=== PATIENT | male | born 1950 | race Hispanic/Latino ===

== ENCOUNTER 2016-05-23 14:53 | Observation (INO) | payer MEDICARE, OTHER ==
--- NOTE | 2016-05-23 15:29 | C.PDOC ---
History Of Present Illness Patient is a 65 year old male who presents to the ER with a complaint of bilateral leg swelling for an unspecified amount of time that is worsening. Patient states he lives in a [facility] and sleeps sitting up. Denies any chest pain, shortness of breath, fever, or chills. pt also c/o itchy rash to both arms, Time Seen by Provider: 05/23/16 15:26 Chief Complaint (Nursing): Lower Extremity Problem/Injury History Per: Patient History/Exam Limitations: no limitations Onset/Duration Of Symptoms: Days (Unknown) Current Symptoms Are (Timing): Still Present Past Medical History Reviewed: Historical Data, Nursing Documentation, Vital Signs Vital Signs: Last Vital Signs Temp 97.5 F L 05/23/16 14:58 Pulse 70 05/23/16 17:50 Resp 18 05/23/16 17:50 BP 165/82 H 05/23/16 17:50 Pulse Ox 98 05/23/16 18:53 - [facility] Procedures ALCOHOL DETOXIFICATION (01/26/14) Family History: States: Unknown Family Hx - Social History Hx Tobacco Use: Yes Hx Alcohol Use: Yes Hx Substance Use: No - Immunization History Hx Tetanus Toxoid Vaccination: No Hx Influenza Vaccination: No Hx Pneumococcal Vaccination: No Review Of Systems Constitutional: Negative for: Fever, Chills Cardiovascular: Negative for: Chest Pain, Palpitations Respiratory: Negative for: Shortness of Breath Gastrointestinal: Negative for: Nausea, Vomiting Musculoskeletal: Positive for: Other (Bilateral leg swelling) Physical Exam - Physical Exam Appears: Well, Non-toxic, No Acute Distress Skin: Normal Color, Warm, Dry Head: Atraumatic, Normacephalic Oral Mucosa: Moist Cardiovascular: Rhythm Regular Respiratory: Normal Breath Sounds, No Rales, No Rhonchi, No Wheezing Gastrointestinal/Abdominal: Soft, No Tenderness Extremity: Swelling (bilateral ), Other (Right leg pitting edema, poor toenails w/ fungal appearance.) Pulses: Left Dorsalis Pedis: Normal (+2), Right Dorsalis Pedis: Normal (+2) Neurological/Psych: Oriented x3, Normal Speech, Normal Cognition Additional Physical Exam Comments: Left leg proximally misshapen from mid knee to distal lower leg due to swelling , with less swelling to ankle. Right lower leg swollen from foot to knee with erythema, warmth and pitting edema. ED Course And Treatment - Laboratory Results Result Diagrams: 05/23/16 16:37 05/23/16 16:37 O2 Sat by Pulse Oximetry: 98 Pulse Ox Interpretation: Normal Progress Note: Blood work, urinalysis, and venous duplex scan low ext bi ordered. Reevaluation Time: 15:29 Reassessment Condition: Improved Medical Decision Making Medical Decision Making: message left for Dr Howell. Disposition Discussed With .: Marcos Howell Doctor Will See Patient In The: Hospital - Disposition Disposition Time: 18:52 Condition: STABLE - Clinical Impression Clinical Impression: Cellulitis of leg without foot, right, Rash, Hyponatremia - Scribe Statement The provider has reviewed the documentation as recorded by the Scribe Jessee Moore All medical record entries made by the Scribe were at my direction and personally dictated by me. I have reviewed the chart and agree that the record accurately reflects my personal performance of the history, physical exam, medical decision making, and the department course for this patient. I have also personally directed, reviewed, and agree with the discharge instructions and disposition. Decision To Admit - Pt Status Changed To: Hospital Disposition Of: Observation - . Bed Request Type: Regular Patient Diagnosis: Cellulitis of leg without foot, right, Rash, Hyponatremia
[2016-05-23 16:41] LABS: BASO # 0.1 K/uL (0.0-0.2); EOS # 0.9 K/uL (0.0-0.7); EOS % 10.8 % (0.0-4.0); HEMATOCRIT 34.6 % (35.0-51.0); LYMPH # 1.9 K/uL (1.0-4.3); MEAN CELL VOLUME 92.9 fL (80.0-94.0); MEAN CORPUSCULAR HEMOGLOBIN 32.2 pg (27.0-31.0); MEAN CORPUSCULAR HGB CONC 34.6 g/dL (33.0-37.0); MEAN PLATELET VOLUME 6.9 fL (7.2-11.7); MONO % 11.7 % (0.0-10.0); RED CELL DISTRIBUTION WIDTH 12.1 % (11.5-14.5); WHITE BLOOD COUNT 8.4 K/uL (4.8-10.8)
[2016-05-23 16:49] LABS: CHLORIDE 88 mmol/L (98-107)
[2016-05-23 16:50] LABS: POTASSIUM 3.5 mmol/L (3.6-5.2); SODIUM 129 mmol/L (132-148)
[2016-05-23 16:52] LABS: ALB/GLOB RATIO 1.1 (1.0-2.1); AST/SGOT 20 U/L (17-59); BILIRUBIN,TOTAL 0.6 mg/dL (0.2-1.3); BLOOD UREA NITROGEN 12 mg/dL (9-20); CARBON DIOXIDE 31 mmol/L (22-30); GFR AFRICAN-AMERICAN > 60; TOTAL PROTEIN 6.8 g/dL (6.3-8.3)
[2016-05-23 16:53] LABS: ALKALINE PHOSPHATASE 62 U/L (38-126); ALT/SGPT 16 U/L (21-72); CALCIUM 8.1 mg/dl (8.6-10.4); GLUCOSE,RANDOM 94 mg/dL (75-110)
[2016-05-23] MEDS ORDERED: ceFAZolin IV 1 gm in Dextrose 50 ML IVPB ONE (18:48)
[2016-05-23] MEDS ORDERED: Enoxaparin 60 mg Syringe SC STA (18:51)
[2016-05-23] MEDS ORDERED: ceFAZolin 1 gm FROZEN Premix 50 ML IVPB ONE (19:11)
[2016-05-23] MEDS ORDERED: Sodium Chloride 0.9% 1,000 ML ONE (19:11)
[2016-05-23] MEDS: Sodium Chloride 0.9% 1,000 ML IV SCH (19:19)
[2016-05-23] MEDS ORDERED: Enoxaparin 80 mg Syringe SC STA (19:24)
[2016-05-23 19:35] LABS: RBC URINE 1 /hpf (0-3); URINE BACTERIA RARE (<OCC); URINE BILIRUBIN NEGATIVE (NEGATIVE); URINE BLOOD NEGATIVE (NEGATIVE); URINE COLOR Straw (YELLOW); URINE GLUCOSE (UA) NORMAL (Normal); URINE KETONE NEGATIVE (NEGATIVE); URINE LEUKOCYTE ESTERASE NEG Leu/uL (Negative); URINE PROTEIN NEGATIVE (NEGATIVE); URINE UROBILINOGEN NORMAL mg/dL (0.2-1.0); WBC URINE < 1 /hpf (0-5)
[2016-05-23] MEDS ORDERED: Potassium Chloride 20 mEq ER Tab PO STA (22:48)
--- NOTE | 2016-05-23 22:48 | CP.PCM.HP ---
History of Present Illness - History of Present Illness History of Present Illness: 65 years old male, EtOH abuse patient,presents to the ER complained of worsening bilateral lower limb swelling. Patient lives in senior living Complaining of rash over both arms No any fever nausea vomiting No chest pain no shortness of breath no palpitation Present on Admission - Present on Admission Any Indicators Present on Admission: No Past Patient History - Past Social History Smoking Status: Current Some Days Smoker - CARDIAC Hx Hypertension: No - PULMONARY Hx Tuberculosis: No - NEUROLOGICAL Hx Seizures: No - HEMATOLOGICAL/ONCOLOGICAL Hx Human Immunodeficiency Virus (HIV): No - MUSCULOSKELETAL/RHEUMATOLOGICAL Hx Falls: Yes (2012) - GENITOURINARY/GYNECOLOGICAL Hx Sexually Transmitted Disorders: No - PSYCHIATRIC Hx Substance Use: No Meds Home Medications: Home Medication List Medication Instructions Recorded Confirmed Type Amoxicillin/Clavulanate [Augmentin 1 tab PO Q12 #14 tab 05/26/16 Rx 875 MG-125 MG] Allergies/Adverse Reactions: Allergies Allergy/AdvReac Type Severity Reaction Status Date / Time No Known Allergies Allergy Verified 05/23/16 15:00 Results - Vital Signs Recent Vital Signs: Last Vital Signs Temp 97.5 F L 05/23/16 14:58 Pulse 77 05/23/16 19:39 Resp 16 05/23/16 19:39 BP 162/80 H 05/23/16 19:39 Pulse Ox 98 05/23/16 19:39 - Labs Result Diagrams: 05/26/16 07:41 05/26/16 07:41 Labs: Laboratory Results - last 24 hr 05/23/16 19:21 Urine Color Straw Urine Clarity Clear Urine pH 8.0 Ur Specific [place] 1.008 Urine Protein Negative Urine Glucose (UA) Normal Urine Ketones Negative Urine Blood Negative Urine Nitrate Negative Urine Bilirubin Negative Urine Urobilinogen Normal Ur Leukocyte Esterase Neg Urine WBC (Auto) < 1 Urine RBC (Auto) 1 Urine Bacteria Rare Assessment & Plan (1) Alcohol intoxication Status: Acute (2) Ankle sprain Status: Acute (3) Cellulitis of leg without foot, right Status: Acute (4) Facial laceration Status: Acute (5) Hyponatremia Status: Acute (6) Low back pain Status: Acute (7) Prophylactic measure Status: Acute (8) Rash Status: Acute (9) Thoracic back sprain Status: Acute (10) Alcoholism /alcohol abuse Status: Chronic - Assessment and Plan (Free Text) Plan: rocephin venous doppler lovenox protonix pietro sme id ocnsult
[2016-05-24] MEDS ORDERED: Potassium Chloride 20 mEq ER Tab PO STA (02:17)
[2016-05-24] MEDS: Sodium Chloride 0.9% 1,000 ML IV SCH ×3 (05:00→17:36)
[2016-05-24] MEDS: Piperacill/Tazo 3.375gm in Dex 50 ML IVPB SCH ×5 (05:05→22:58)
[2016-05-24] MEDS: Pantoprazole 40 mg EC Tab PO SCH (12:00)
[2016-05-24] MEDS: Enoxaparin 40 mg Syringe SC SCH (12:00)
--- NOTE | 2016-05-24 15:36 | VASCLAB ---
PROCEDURE: Lower Extremity Venous Duplex Exam. HISTORY: B/L leg swelling PRIORS: None. TECHNIQUE: Bilateral common femoral, femoral, popliteal and posterior tibial, peroneal and great saphenous veins were evaluated. Flow was assessed with color Doppler, compressibility, assessment of phasic flow and augmentation response. Report prepared by ADE Soriano FINDINGS: RIGHT: 1. Common Femoral Vein: 1.1. Compressibility - Fully compressible: Thrombus - None : Flow - Phasic: Augmentation -Normal: Reflux - None. 2. Femoral Vein: 2.1. Compressibility - Fully compressible: Thrombus - None : Flow - Phasic: Augmentation -Normal: Reflux - None. 3. Popliteal Vein: 3.1. Compressibility - Fully compressible: Thrombus - None : Flow - Phasic: Augmentation -Normal: Reflux - None. 4. Posterior Tibial Vein: 4.1. Compressibility - Fully compressible: Thrombus - None: Flow - Phasic: Augmentation -Normal: Reflux - None. 5. Peroneal Vein: 5.1. n/a 6. Great Saphenous Vein: 6.1. Compressibility - Fully compressible: Thrombus - None: Flow - Phasic: Augmentation - Normal: Reflux - None. LEFT: 1. Common Femoral Vein: 1.1. Compressibility - Fully compressible: Thrombus - None: Flow - Phasic: Augmentation -Normal: Reflux - None. 2. Femoral Vein: 2.1. Compressibility - Fully compressible: Thrombus - None: Flow - Phasic: Augmentation -Normal: Reflux - None. 3. Popliteal Vein: 3.1. Compressibility - Fully compressible: Thrombus - None : Flow - Phasic: Augmentation -Normal: Reflux - None. 4. Posterior Tibial Vein: 4.1. Compressibility - Fully compressible: Thrombus - None: Flow - Phasic: Augmentation -Normal: Reflux - None. 5. Peroneal Vein: 5.1. n/a 6. Great Saphenous Vein: 6.1. Compressibility - Fully compressible: Thrombus - None: Flow - Phasic: Augmentation - Normal: Reflux - None. OTHER FINDINGS: Bilateral peroneal veins were not imaged, due to swelling. Otherwise, normal exam. IMPRESSION: Right: No evidence of deep or superficial vein thrombosis of the right lower extremity, for the imaged veins. Left: No evidence of deep or superficial vein thrombosis of the left lower extremity, for the imaged veins.
--- NOTE | 2016-05-24 17:46 | CP.PCM.PN ---
Subjective - Date & Time of Evaluation Date of Evaluation: 05/24/16 Time of Evaluation: 12:40 - Subjective Subjective: pt clinically same s/p Dr Zeina lr Objective - Vital Signs/Intake and Output Vital Signs (last 24 hours): Temp Pulse Resp BP Pulse Ox 98.5 F 86 20 166/66 H 94 L 05/24/16 07:00 05/24/16 15:13 05/24/16 07:00 05/24/16 07:00 05/24/16 07:00 Intake and Output: 05/24/16 05/24/16 06:59 18:59 Intake Total 1000 500 Output Total 450 Balance 550 500 - Medications Medications: Current Medications Enoxaparin Sodium (Lovenox) 40 mg SC DAILY [facility] Last Admin: 05/24/16 12:00 Dose: 40 mg Sodium Chloride (Sodium Chloride 0.9%) 1,000 mls @ 100 mls/hr IV .Q10H [facility] Last Admin: 05/24/16 17:36 Dose: 100 mls/hr Piperacillin Sod/Tazobactam Sod (Zosyn 3.375 Gm Iv Premix) 50 mls @ 200 mls/hr IVPB Q6H [facility] Last Admin: 05/24/16 17:37 Dose: 200 mls/hr Pantoprazole Sodium (Protonix Ec Tab) 40 mg PO DAILY [facility] Last Admin: 05/24/16 12:00 Dose: 40 mg - Constitutional Appears: No Acute Distress - Head Exam Head Exam: ATRAUMATIC, NORMAL INSPECTION, NORMOCEPHALIC - Eye Exam Eye Exam: EOMI, Normal appearance, PERRL Pupil Exam: NORMAL ACCOMODATION, PERRL - ENT Exam ENT Exam: Mucous Membranes Moist - Neck Exam Neck Exam: Full ROM - Respiratory Exam Respiratory Exam: Decreased Breath Sounds - Cardiovascular Exam Cardiovascular Exam: REGULAR RHYTHM, +S1, +S2 - GI/Abdominal Exam GI & Abdominal Exam: Soft, Diminished Bowel Sounds - Rectal Exam Rectal Exam: Deferred - Neurological Exam Neurological Exam: Alert, Awake, Oriented x3 Assessment and Plan (1) Alcohol intoxication Status: Acute (2) Ankle sprain Status: Acute (3) Cellulitis of leg without foot, right Status: Acute (4) Facial laceration Status: Acute (5) Hyponatremia Status: Acute (6) Low back pain Status: Acute (7) Prophylactic measure Status: Acute (8) Rash Status: Acute (9) Thoracic back sprain Status: Acute (10) Alcoholism /alcohol abuse Status: Chronic - Assessment and Plan (Free Text) Plan: usg neg for dvt id dr broderick on board pietro iv abx permethrin cream as per id septic work up
[2016-05-24] MEDS ORDERED: Permethrin 5% Cream(60 gm) TOP ONE (18:45)
--- NOTE | 2016-05-24 18:45 | CP.PCM.CON ---
History of Present Illness - History of Present Illness History of Present Illness: Patient is a 65 year old male who presents to the ER with a complaint of bilateral leg swelling for an unspecified amount of time that is worsening. Patient [facility] and sleeps sitting up. Denies any chest pain, shortness of breath, fever, or chills. pt also c/o itchy rash to both arms, Review of Systems - Constitutional Constitutional: As Per HPI - EENT Eyes: absent: As Per HPI, Blind Spots, Blurred Vision, Change in Vision, Decreased Night Vision, Diplopia, Discharge, Dry Eye, Exophthalmos, Floaters, Irritation, Itchy Eyes, Loss of Peripheral Vision, Pain, Photophobia, Requires Corrective Lenses, Sees Flashes, Spots in Vision, Tunnel Vision, Other Visual Disturbances, Loss of Vision, Other Ears: absent: As Per HPI, Decreased Hearing, Ear Discharge, Ear Pain, Tinnitus, Abnormal Hearing, Disequilibrium, Dizziness, Other Nose/Mouth/Throat: absent: As Per HPI, Epistaxis, Nasal Congestion, Nasal Discharge, Nasal Obstruction, Nasal Trauma, Nose Pain, Post Nasal Drip, Sinus Pain, Sinus Pressure, Bleeding Gums, Change in Voice, Dental Pain, Dry Mouth, Dysphagia, Halitosis, Hoarsness, Lip Swelling, Mouth Lesions, Mouth Pain, Odynophagia, Sore Throat, Throat Swelling, Tongue Swelling, Facial Pain, Neck Pain, Neck Mass, Other - Cardiovascular Cardiovascular: absent: As Per HPI, Acrocyanosis, Chest Pain, Chest Pain at Rest , Chest Pain with Activity, Claudication, Diaphoresis, Dyspnea, Dyspnea on Exertion, Edema, Irregular Heart Rhythm, Pain Radiating to Arm/Neck/Jaw, Leg Edema, Leg Ulcers, Lightheadedness, Orthopnea, Palpitations, Paroxysmal Nocturnal Dyspnea, Pedal Edema, Radiating Pain, Rapid Heart Rate, Slow Heart Rate, Syncope, Other - Respiratory Respiratory: Cough, Dyspnea - Gastrointestinal Gastrointestinal: absent: As Per HPI, Abdominal Pain, Belching, Bloating, Change in Bowel Habits, Change in Stool Character, Coffee Ground Emesis, Constipation, Cramping, Diarrhea, Dyspepsia, Dysphagia, Early Satiety, Excessive Flatus, Fecal Incontinence, Heartburn, Hematemesis, Hematochezia, Loose Stools, Melena, Nausea, Odynophagia, Temesmus, Vomiting, Other - Genitourinary Genitourinary: absent: As Per HPI, Change in Urinary Stream, Difficulty Urinating, Dysuria, Flank Pain, Hematuria, Pyuria, Nocturia, Urinary Incontinence, Urinary Frequency, Urinary Hesitance, Urinary Urgency, Voiding Freq/Small Amts, Freq UTI, Hx Renal/Bladder Calculi, Hx /Renal Surgery, Bladder Distension, Other - Musculoskeletal Musculoskeletal: As Per HPI - Integumentary Integumentary: As Per HPI, Skin Pain, Wounds - Neurological Neurological: absent: As Per HPI, Abnormal Gait, Abnormal Hearing, Abnormal Movements, Abnormal Speech, Behavioral Changes, Burning Sensations, Confusion, Convulsions, Disequilibrium, Dizziness, Numbness, Focal Weakness, Frequent Falls , Headaches, Lack of Coordination, Loss of Vision, Memory Loss, Paresthesias, Radicular Pain, Restless Legs, Sensory Deficit, Syncope, Tingling, Tremor, Vertigo, Weakness, Other Visual Disturbances, Other - Psychiatric Psychiatric: absent: As Per HPI, Abnormal Sleep Pattern, Anhedonia, Anxiety, Auditory Hallucinations, Behavioral Changes, Change in Appetite, Change in Libido, Confusion, Depression, Difficulty Concentrating, Hallucinations, Homicidal Ideation, Hopelessness, Irritability, Memory Loss, Mood Swings, Panic Attacks, Paranoia, Suicidal Ideation, Visual Hallucinations, Tactile Hallucinations, Other - Endocrine Endocrine: absent: As Per HPI, Change in Body Appearance, Change in Libido, Cold Intolorance, Deepening of Voice, Excessive Sweating, Fatigue, Flushing, Heat Intolorance, Increase in Ring/Shoe/Hat Size, Palpitations, Polydipsia, Polyphagia, Polyuria, Other - Hematologic/Lymphatic Hematologic: absent: As Per HPI, Easy Bleeding, Easy Bruising, Lymphadenopathy, Other Past Patient History - Past Social History Smoking Status: daily - CARDIAC Hx Hypertension: No - PULMONARY Hx Tuberculosis: No - NEUROLOGICAL Hx Seizures: No - HEMATOLOGICAL/ONCOLOGICAL Hx Human Immunodeficiency Virus (HIV): No - MUSCULOSKELETAL/RHEUMATOLOGICAL Hx Falls: No - GENITOURINARY/GYNECOLOGICAL Hx Sexually Transmitted Disorders: No - PSYCHIATRIC Hx Substance Use: No Meds Allergies/Adverse Reactions: Allergies Allergy/AdvReac Type Severity Reaction Status Date / Time No Known Allergies Allergy Verified 05/23/16 15:00 - Medications Medications: Current Medications Enoxaparin Sodium (Lovenox) 40 mg SC DAILY [facility] Last Admin: 05/24/16 12:00 Dose: 40 mg Sodium Chloride (Sodium Chloride 0.9%) 1,000 mls @ 100 mls/hr IV .Q10H [facility] Last Admin: 05/24/16 17:36 Dose: 100 mls/hr Piperacillin Sod/Tazobactam Sod (Zosyn 3.375 Gm Iv Premix) 50 mls @ 200 mls/hr IVPB Q6H [facility] Last Admin: 05/24/16 17:37 Dose: 200 mls/hr Pantoprazole Sodium (Protonix Ec Tab) 40 mg PO DAILY [facility] Last Admin: 05/24/16 12:00 Dose: 40 mg Potassium Chloride (K-Dur 20 Meq Er Tab) 40 meq PO Q4 [facility] Stop: 05/25/16 00:01 Physical Exam - Constitutional Appears: Non-toxic, Chronically Ill - Head Exam Head Exam: NORMOCEPHALIC - Eye Exam Eye Exam: PERRL. absent: Scleral icterus - ENT Exam ENT Exam: Mucous Membranes Dry, Normal External Ear Exam, Normal Oropharynx - Neck Exam Neck exam: Negative for: Lymphadenopathy, Thyromegaly - Respiratory Exam Respiratory Exam: Decreased Breath Sounds, Rhonchi - Cardiovascular Exam Cardiovascular Exam: REGULAR RHYTHM, +S1, +S2 - GI/Abdominal Exam GI & Abdominal Exam: Diminished Bowel Sounds, Soft. absent: Tenderness - Rectal Exam Rectal Exam: Deferred - Extremities Exam Extremities exam: Positive for: pedal edema, tenderness, pedal pulses present. Negative for: calf tenderness - Back Exam Back exam: absent: CVA tenderness (L), CVA tenderness (R), paraspinal tenderness - Neurological Exam Neurological exam: Alert, CN II-XII Intact, Oriented x3, Reflexes Normal - Psychiatric Exam Psychiatric exam: Depressed - Skin Skin Exam: Dry Results - Vital Signs Recent Vital Signs: Last Vital Signs Temp 98.5 F 05/24/16 07:00 Pulse 86 05/24/16 15:13 Resp 20 05/24/16 07:00 BP 166/66 H 05/24/16 07:00 Pulse Ox 94 L 05/24/16 07:00 - Labs Result Diagrams: 05/23/16 16:37 05/23/16 16:37 Labs: Laboratory Results - last 24 hr 05/23/16 19:21 Urine Color Straw Urine Clarity Clear Urine pH 8.0 Ur Specific [place] 1.008 Urine Protein Negative Urine Glucose (UA) Normal Urine Ketones Negative Urine Blood Negative Urine Nitrate Negative Urine Bilirubin Negative Urine Urobilinogen Normal Ur Leukocyte Esterase Neg Urine WBC (Auto) < 1 Urine RBC (Auto) 1 Urine Bacteria Rare Assessment & Plan (1) Cellulitis of leg without foot, right Status: Acute (2) Alcohol intoxication Status: Acute (3) Alcoholism /alcohol abuse Status: Acute - Assessment and Plan (Free Text) Assessment: cont iv rx will treat with permathrin empirically
[2016-05-24] MEDS: Potassium Chloride 20 mEq ER Tab PO SCH (20:12)
[2016-05-25] MEDS: Potassium Chloride 20 mEq ER Tab PO SCH (00:06)
[2016-05-25] MEDS: Sodium Chloride 0.9% 1,000 ML IV SCH ×4 (01:00→15:16)
[2016-05-25] MEDS: Piperacill/Tazo 3.375gm in Dex 50 ML IVPB SCH ×4 (05:08→22:27)
--- NOTE | 2016-05-25 08:55 | CP.PCM.PN ---
Subjective - Date & Time of Evaluation Date of Evaluation: 05/25/16 Time of Evaluation: 10:00 - Subjective Subjective: Dr. Tobin Howell service: Patient seen and evaluated in room. Patient is a poor hisoritain. He admits he has a skins infection but does not know how or what kind of infection it is. He lives in a homeless senior living and takes no medication. He has a history of eoth abuse which he has been sober since moved into a senior living a few months ago. Objective - Vital Signs/Intake and Output Vital Signs (last 24 hours): Temp Pulse Resp BP Pulse Ox 98.3 F 73 20 160/76 H 96 05/24/16 23:25 05/24/16 23:25 05/24/16 23:25 05/24/16 23:25 05/24/16 23:25 Intake and Output: 05/25/16 05/25/16 06:59 18:59 Intake Total 2250 Output Total 600 Balance 1650 - Medications Medications: Current Medications Enoxaparin Sodium (Lovenox) 40 mg SC DAILY [facility] Last Admin: 05/24/16 12:00 Dose: 40 mg Ergocalciferol (Drisdol 50,000 Intl Units Cap) 1 cap PO QWK [facility] Sodium Chloride (Sodium Chloride 0.9%) 1,000 mls @ 100 mls/hr IV .Q10H [facility] Last Admin: 05/25/16 04:35 Dose: 100 mls/hr Piperacillin Sod/Tazobactam Sod (Zosyn 3.375 Gm Iv Premix) 50 mls @ 200 mls/hr IVPB Q6H [facility] Last Admin: 05/25/16 05:08 Dose: 200 mls/hr Lactic Acid (Lac-Hydrin 12% Lotion (225 G)) 5 gm EXT BID [facility] Multivitamins (Hexavitamin) 1 tab PO DAILY [facility] Pantoprazole Sodium (Protonix Ec Tab) 40 mg PO DAILY [facility] Last Admin: 05/24/16 12:00 Dose: 40 mg Thiamine HCl (Vitamin B1 Tab) 100 mg PO DAILY [facility] Last Admin: 05/24/16 20:13 Dose: 100 mg - Constitutional Appears: Non-toxic, No Acute Distress - Head Exam Head Exam: NORMOCEPHALIC - Eye Exam Eye Exam: Normal appearance - ENT Exam ENT Exam: Normal Exam - Respiratory Exam Respiratory Exam: Clear to Ausculation Bilateral - Cardiovascular Exam Cardiovascular Exam: REGULAR RHYTHM - GI/Abdominal Exam GI & Abdominal Exam: Soft, Normal Bowel Sounds. absent: Tenderness - Extremities Exam Extremities Exam: Tenderness - Skin Additional comments: red, and discolored around the lower extremities. Assessment and Plan (1) Cellulitis of leg without foot, right Assessment & Plan: IV antibiotics Status: Acute (2) Hyponatremia Assessment & Plan: resolved, continue to monitor Status: Acute (3) Alcoholism /alcohol abuse Assessment & Plan: thiamine and folic acid Status: Chronic (4) Prophylactic measure Assessment & Plan: Protonix 40mg Lovenox Status: Acute
[2016-05-25] MEDS ORDERED: Ergocalciferol 50,000 Intl Units Cap PO SCH (10:00)
--- NOTE | 2016-05-25 10:30 | CP.PCM.PN ---
Subjective - Date & Time of Evaluation Date of Evaluation: 05/25/16 Time of Evaluation: 09:40 - Subjective Subjective: clinically same Objective - Vital Signs/Intake and Output Vital Signs (last 24 hours): Temp Pulse Resp BP Pulse Ox 98.3 F 73 20 160/76 H 96 05/24/16 23:25 05/24/16 23:25 05/24/16 23:25 05/24/16 23:25 05/24/16 23:25 Intake and Output: 05/25/16 05/25/16 06:59 18:59 Intake Total 2250 Output Total 600 Balance 1650 - Medications Medications: Current Medications Enoxaparin Sodium (Lovenox) 40 mg SC DAILY [facility] Last Admin: 05/24/16 12:00 Dose: 40 mg Ergocalciferol (Drisdol 50,000 Intl Units Cap) 1 cap PO QWK [facility] Sodium Chloride (Sodium Chloride 0.9%) 1,000 mls @ 100 mls/hr IV .Q10H [facility] Last Admin: 05/25/16 04:35 Dose: 100 mls/hr Piperacillin Sod/Tazobactam Sod (Zosyn 3.375 Gm Iv Premix) 50 mls @ 200 mls/hr IVPB Q6H [facility] Last Admin: 05/25/16 05:08 Dose: 200 mls/hr Lactic Acid (Lac-Hydrin 12% Lotion (225 G)) 5 gm EXT BID [facility] Multivitamins (Hexavitamin) 1 tab PO DAILY [facility] Pantoprazole Sodium (Protonix Ec Tab) 40 mg PO DAILY [facility] Last Admin: 05/24/16 12:00 Dose: 40 mg Thiamine HCl (Vitamin B1 Tab) 100 mg PO DAILY [facility] Last Admin: 05/24/16 20:13 Dose: 100 mg - Constitutional Appears: Well - Head Exam Head Exam: ATRAUMATIC, NORMAL INSPECTION, NORMOCEPHALIC - Eye Exam Eye Exam: EOMI, Normal appearance, PERRL Pupil Exam: NORMAL ACCOMODATION, PERRL - ENT Exam ENT Exam: Mucous Membranes Moist, Normal Exam - Neck Exam Neck Exam: Full ROM, Normal Inspection. absent: Lymphadenopathy - Respiratory Exam Respiratory Exam: Decreased Breath Sounds - Cardiovascular Exam Cardiovascular Exam: REGULAR RHYTHM, +S1, +S2 - GI/Abdominal Exam GI & Abdominal Exam: Soft, Diminished Bowel Sounds - Rectal Exam Rectal Exam: Deferred - Neurological Exam Neurological Exam: Alert, Awake, Oriented x3 Assessment and Plan (1) Alcohol intoxication Status: Acute (2) Ankle sprain Status: Acute (3) Cellulitis of leg without foot, right Status: Acute (4) Facial laceration Status: Acute (5) Hyponatremia Status: Acute (6) Low back pain Status: Acute (7) Prophylactic measure Status: Acute (8) Rash Status: Acute (9) Thoracic back sprain Status: Acute (10) Alcoholism /alcohol abuse Status: Chronic - Assessment and Plan (Free Text) Plan: iv antibiotic permethrin cream dr meggan jordan neg pt lives in detention possible discharge tomorrow am
[2016-05-25 10:42] VITALS: O2SAT 97
[2016-05-25] MEDS: Enoxaparin 40 mg Syringe SC SCH (10:55)
[2016-05-25] MEDS: Multiple Vitamins Tab PO SCH (10:55)
[2016-05-25] MEDS: Pantoprazole 40 mg EC Tab PO SCH (10:57)
[2016-05-25] MEDS: Ammonium Lactate 12% Lotion (225 g) EXT SCH ×3 (11:15→18:40)
[2016-05-25 11:21] LABS: BASO # 0.1 K/uL (0.0-0.2); BASO % 0.8 % (0.0-2.0); EOS # 0.4 K/uL (0.0-0.7); EOS % 6.2 % (0.0-4.0); HEMATOCRIT 34.7 % (35.0-51.0); LYMPH # 1.8 K/uL (1.0-4.3); LYMPH % 28.7 % (20.0-40.0); MEAN CELL VOLUME 93.5 fL (80.0-94.0); MEAN CORPUSCULAR HEMOGLOBIN 31.8 pg (27.0-31.0); MEAN PLATELET VOLUME 7.3 fL (7.2-11.7); MONO # 0.8 K/uL (0.0-0.8); NRBC % 0.1 % (0.0-2.0); WHITE BLOOD COUNT 6.3 K/uL (4.8-10.8)
[2016-05-25 11:29] LABS: CHLORIDE 95 mmol/L (98-107); POTASSIUM 4.3 mmol/L (3.6-5.2); SODIUM 132 mmol/L (132-148)
[2016-05-25 11:31] LABS: BILIRUBIN,TOTAL 0.9 mg/dL (0.2-1.3); GFR AFRICAN-AMERICAN > 60
[2016-05-25 11:32] LABS: ALB/GLOB RATIO 1.1 (1.0-2.1); ALKALINE PHOSPHATASE 46 U/L (38-126); ALT/SGPT 15 U/L (21-72); AST/SGOT 21 U/L (17-59); BLOOD UREA NITROGEN 10 mg/dL (9-20); CARBON DIOXIDE 27 mmol/L (22-30); GLUCOSE,RANDOM 84 mg/dL (75-110); PHOSPHOROUS 3.6 mg/dL (2.5-4.5); TOTAL PROTEIN 6.4 g/dL (6.3-8.3)
[2016-05-25 11:33] LABS: MAGNESIUM 2.2 mg/dL (1.6-2.3)
[2016-05-25 16:46] VITALS: RESP 20
--- NOTE | 2016-05-25 18:24 | CP.PCM.PN ---
Subjective - Date & Time of Evaluation Date of Evaluation: 05/25/16 Time of Evaluation: 05:00 - Subjective Subjective: CELLULITIS RLE PERSISTS IV RX REORDERED DISCUSSED WITH DR WHITTINGTON AND DR Patric BAIRES Objective - Vital Signs/Intake and Output Vital Signs (last 24 hours): Temp Pulse Resp BP Pulse Ox 98.3 F 68 20 169/83 H 97 05/25/16 15:00 05/25/16 15:00 05/25/16 15:00 05/25/16 15:00 05/25/16 15:00 Intake and Output: 05/25/16 05/25/16 06:59 18:59 Intake Total 2250 1300 Output Total 600 Balance 1650 1300 - Medications Medications: Current Medications Enoxaparin Sodium (Lovenox) 40 mg SC DAILY [facility] Last Admin: 05/25/16 10:55 Dose: 40 mg Ergocalciferol (Drisdol 50,000 Intl Units Cap) 1 cap PO QWK [facility] Last Admin: 05/25/16 10:55 Dose: 1 cap Sodium Chloride (Sodium Chloride 0.9%) 1,000 mls @ 100 mls/hr IV .Q10H [facility] Last Admin: 05/25/16 15:16 Dose: 100 mls/hr Piperacillin Sod/Tazobactam Sod (Zosyn 3.375 Gm Iv Premix) 50 mls @ 200 mls/hr IVPB Q6H [facility] Last Admin: 05/25/16 16:17 Dose: 200 mls/hr Lactic Acid (Lac-Hydrin 12% Lotion (225 G)) 5 gm EXT BID [facility] Last Admin: 05/25/16 11:15 Dose: Not Given Multivitamins (Hexavitamin) 1 tab PO DAILY [facility] Last Admin: 05/25/16 10:55 Dose: 1 tab Pantoprazole Sodium (Protonix Ec Tab) 40 mg PO DAILY [facility] Last Admin: 05/25/16 10:57 Dose: 40 mg Thiamine HCl (Vitamin B1 Tab) 100 mg PO DAILY [facility] Last Admin: 05/25/16 10:56 Dose: 100 mg - Labs Labs: 05/25/16 11:06 05/25/16 11:06 - Constitutional Appears: Non-toxic, Cachectic, Chronically Ill - Head Exam Head Exam: NORMOCEPHALIC - Eye Exam Eye Exam: PERRL. absent: Scleral icterus - ENT Exam ENT Exam: Normal External Ear Exam - Neck Exam Neck Exam: absent: Lymphadenopathy - Respiratory Exam Respiratory Exam: Decreased Breath Sounds, Rhonchi - Cardiovascular Exam Cardiovascular Exam: REGULAR RHYTHM, +S1, +S2 - GI/Abdominal Exam GI & Abdominal Exam: Distended, Soft. absent: Tenderness - Rectal Exam Rectal Exam: Deferred - Exam Exam: NORMAL INSPECTION - Extremities Exam Extremities Exam: Pedal Edema, Tenderness. absent: Calf Tenderness - Back Exam Back Exam: rash noted. absent: CVA tenderness (L), CVA tenderness (R) Assessment and Plan (1) Cellulitis of leg without foot, right Status: Acute (2) Alcohol intoxication Status: Acute (3) Alcoholism /alcohol abuse Status: Chronic
[2016-05-26] MEDS: Piperacill/Tazo 3.375gm in Dex 50 ML IVPB SCH ×2 (04:27→10:04)
[2016-05-26 07:56] LABS: BASO # 0.1 K/uL (0.0-0.2); EOS # 0.8 K/uL (0.0-0.7); EOS % 10.6 % (0.0-4.0); HEMATOCRIT 36.8 % (35.0-51.0); LYMPH # 1.9 K/uL (1.0-4.3); LYMPH % 26.8 % (20.0-40.0); MEAN CELL VOLUME 92.8 fL (80.0-94.0); MEAN CORPUSCULAR HGB CONC 34.5 g/dL (33.0-37.0); MEAN PLATELET VOLUME 7.1 fL (7.2-11.7); MONO # 0.8 K/uL (0.0-0.8); MONO % 11.6 % (0.0-10.0); RED CELL DISTRIBUTION WIDTH 12.1 % (11.5-14.5); WHITE BLOOD COUNT 7.2 K/uL (4.8-10.8)
[2016-05-26 08:07] LABS: CHLORIDE 93 mmol/L (98-107)
[2016-05-26 08:08] LABS: POTASSIUM 4.5 mmol/L (3.6-5.2); SODIUM 129 mmol/L (132-148)
[2016-05-26 08:11] LABS: ALB/GLOB RATIO 1.2 (1.0-2.1); ALKALINE PHOSPHATASE 49 U/L (38-126); ALT/SGPT 22 U/L (21-72); AST/SGOT 27 U/L (17-59); BILIRUBIN,TOTAL 1.3 mg/dL (0.2-1.3); BLOOD UREA NITROGEN 10 mg/dL (9-20); CALCIUM 8.4 mg/dl (8.6-10.4); CARBON DIOXIDE 26 mmol/L (22-30); GFR AFRICAN-AMERICAN > 60; GLUCOSE,RANDOM 90 mg/dL (75-110); TOTAL PROTEIN 7.5 g/dL (6.3-8.3)
[2016-05-26 08:12] LABS: MAGNESIUM 2.1 mg/dL (1.6-2.3)
[2016-05-26 09:12] VITALS: BP 155/71; PULSE 68; TEMP 98.5
[2016-05-26] MEDS: Enoxaparin 40 mg Syringe SC SCH (09:43)
[2016-05-26] MEDS: Multiple Vitamins Tab PO SCH (09:43)
[2016-05-26] MEDS: Pantoprazole 40 mg EC Tab PO SCH (09:43)
[2016-05-26] MEDS: Ammonium Lactate 12% Lotion (225 g) EXT SCH ×2 (09:44→09:46)
--- NOTE | 2016-05-26 12:43 | CP.PCM.PN ---
Subjective - Date & Time of Evaluation Date of Evaluation: 05/26/16 Time of Evaluation: 12:35 - Subjective Subjective: PEDIATRIC CARE COORDINATOR NOTES Pt seen today with Dr. Guillermo segal, denies any complaints admitted for cellulitis Dr. Guillermo segal cleared patient for discharge home today with augmentin x 1 weeks and f/u with his office on Saturday Objective - Vital Signs/Intake and Output Vital Signs (last 24 hours): Temp Pulse Resp BP Pulse Ox 98.5 F 68 20 155/71 H 97 05/26/16 08:00 05/26/16 08:00 05/26/16 08:00 05/26/16 08:00 05/26/16 08:00 Intake and Output: 05/26/16 05/26/16 06:59 18:59 Intake Total 1025 350 Balance 1025 350 - Medications Medications: Current Medications Enoxaparin Sodium (Lovenox) 40 mg SC DAILY [facility] Last Admin: 05/26/16 09:43 Dose: 40 mg Ergocalciferol (Drisdol 50,000 Intl Units Cap) 1 cap PO QWK [facility] Last Admin: 05/25/16 10:55 Dose: 1 cap Piperacillin Sod/Tazobactam Sod (Zosyn 3.375 Gm Iv Premix) 50 mls @ 200 mls/hr IVPB Q6H [facility] Last Admin: 05/26/16 10:04 Dose: 200 mls/hr Lactic Acid (Lac-Hydrin 12% Lotion (225 G)) 5 gm EXT BID [facility] Last Admin: 05/26/16 09:46 Dose: Not Given Multivitamins (Hexavitamin) 1 tab PO DAILY [facility] Last Admin: 05/26/16 09:43 Dose: 1 tab Pantoprazole Sodium (Protonix Ec Tab) 40 mg PO DAILY [facility] Last Admin: 05/26/16 09:43 Dose: 40 mg Thiamine HCl (Vitamin B1 Tab) 100 mg PO DAILY [facility] Last Admin: 05/26/16 09:43 Dose: 100 mg - Labs Labs: 05/26/16 07:41 05/26/16 07:41
--- NOTE | 2016-05-26 14:39 | CP.PCM.PN ---
Subjective - Date & Time of Evaluation Date of Evaluation: 05/26/16 Time of Evaluation: 10:00 - Subjective Subjective: pt cleared for d/c to home on PO augmentin x 1 week discharge planning Objective - Vital Signs/Intake and Output Vital Signs (last 24 hours): Temp Pulse Resp BP Pulse Ox 98.5 F 68 20 155/71 H 97 05/26/16 08:00 05/26/16 08:00 05/26/16 08:00 05/26/16 08:00 05/26/16 08:00 Intake and Output: 05/26/16 05/26/16 06:59 18:59 Intake Total 1025 350 Balance 1025 350 - Medications Medications: Current Medications Enoxaparin Sodium (Lovenox) 40 mg SC DAILY [facility] Last Admin: 05/26/16 09:43 Dose: 40 mg Ergocalciferol (Drisdol 50,000 Intl Units Cap) 1 cap PO QWK [facility] Last Admin: 05/25/16 10:55 Dose: 1 cap Piperacillin Sod/Tazobactam Sod (Zosyn 3.375 Gm Iv Premix) 50 mls @ 200 mls/hr IVPB Q6H [facility] Last Admin: 05/26/16 10:04 Dose: 200 mls/hr Lactic Acid (Lac-Hydrin 12% Lotion (225 G)) 5 gm EXT BID [facility] Last Admin: 05/26/16 09:46 Dose: Not Given Multivitamins (Hexavitamin) 1 tab PO DAILY [facility] Last Admin: 05/26/16 09:43 Dose: 1 tab Pantoprazole Sodium (Protonix Ec Tab) 40 mg PO DAILY [facility] Last Admin: 05/26/16 09:43 Dose: 40 mg Thiamine HCl (Vitamin B1 Tab) 100 mg PO DAILY [facility] Last Admin: 05/26/16 09:43 Dose: 100 mg - Labs Labs: 05/26/16 07:41 05/26/16 07:41 - Constitutional Appears: Well - Head Exam Head Exam: ATRAUMATIC, NORMAL INSPECTION, NORMOCEPHALIC - Eye Exam Eye Exam: EOMI, Normal appearance, PERRL Pupil Exam: NORMAL ACCOMODATION, PERRL - ENT Exam ENT Exam: Mucous Membranes Moist, Normal Exam - Neck Exam Neck Exam: Full ROM, Normal Inspection. absent: Lymphadenopathy - Respiratory Exam Respiratory Exam: Decreased Breath Sounds - Cardiovascular Exam Cardiovascular Exam: REGULAR RHYTHM, +S1, +S2 - GI/Abdominal Exam GI & Abdominal Exam: Soft, Diminished Bowel Sounds - Rectal Exam Rectal Exam: Deferred - Neurological Exam Neurological Exam: Alert, Awake, Oriented x3 Assessment and Plan (1) Alcohol intoxication Status: Acute (2) Ankle sprain Status: Acute (3) Cellulitis of leg without foot, right Status: Acute (4) Facial laceration Status: Acute (5) Hyponatremia Status: Acute (6) Low back pain Status: Acute (7) Prophylactic measure Status: Acute (8) Rash Status: Acute (9) Thoracic back sprain Status: Acute (10) Alcoholism /alcohol abuse Status: Chronic - Assessment and Plan (Free Text) Plan: for discharge to home augmentin x 1 week f/u with me in office as instructed mx as ordered
--- NOTE | 2016-05-28 11:45 | VASCLAB ---
STUDY DESCRIPTION: HISTORY: Weak pulses PRIORS: None. TECHNIQUE: Pulse volume recording waveforms and segmental pressures of bilateral lower extremities at multiple levels were obtained. Ankle Brachial Indices (ABIs) were calculated. Report prepared by ADE Soriano RIGHT LOWER EXTREMITY: * Brachial artery: Pressure - 155 mmHg. * High thigh: Pressure - 191 mmHg: Ratio - 1.23: PVR waveform - Pulsatile * Low thigh: Pressure - 190 mmHg: Ratio - 1.23 PVR waveform: Pulsatile * Calf: Pressure - 185 mmHg: Ratio - 1.19 PVR waveform: Pulsatile * Posterior tibial Artery: Pressure - 181 mmHg: Ratio - 1.17 PVR waveform: Pulsatile * Dorsalis pedis Artery: Pressure - 181 mmHg: Ratio - 1.17 PVR waveform: Pulsatile * Great toe: Unable to perform Ankle brachial index (NIR): 1.17 LEFT LOWER EXTREMITY: * Brachial artery: Pressure - 151 mmHg. * High thigh: Pressure - 184 mmHg: Ratio - 1.19: PVR waveform - Pulsatile * Low thigh: Pressure - 183 mmHg: Ratio - 1.18 PVR waveform: Pulsatile * Calf: Pressure - 181 mmHg: Ratio - 1.17 PVR waveform: Pulsatile * Posterior tibial Artery: Pressure - 181 mmHg: Ratio - 1.17 PVR waveform: Pulsatile * Dorsalis pedis Artery: Pressure - 202 mmHg: Ratio - 1.30 PVR waveform: Pulsatile * Great toe: Unable to perform Ankle brachial index (NIR): 1.30 OTHER FINDINGS: Right: There was no evidence of hemodynamically significant arterial insufficiency in the right lower extremity. Left: There was no evidence of hemodynamically signficant arterial in sufficiency in the left lower extremity. IMPRESSION: 1. PVR waveforms and segmental pressures suggest normal arterial perfusion to bilateral lower extremities, at rest. 2. Normal ankle brachial indices.
== END 2016-05-26 17:30 | disposition home or self-care (01) ==
LOC: C.ER 14:53 → C.9E 18:50 → C.3T 19:27
PROVIDERS: ADMIT Internal Medicine Nephrology; ATTEND Internal Medicine Nephrology
DX: L03.115 Cellulitis of right lower limb (principal); F10.229 Alcohol dependence with intoxication, unspecified; E87.1 Hypo-osmolality and hyponatremia; R21 Rash and other nonspecific skin eruption
CPT/HCPCS: 36415; 80053; 80074; 81001; 83735; 84100; 85025; 86703; 87040; 93923; 93970; 96365; 96372; 99284; G0378; J0690; J1650; J2543; J7040

== ENCOUNTER 2018-03-27 10:38 | Emergency (ER) | payer MEDICARE ==
--- NOTE | 2018-03-27 13:30 | RAD ---
Date of service: 03/27/2018 PROCEDURE: Right Wrist Radiographs. HISTORY: s/p fall - r/o fx COMPARISON: None. FINDINGS: BONES: A nondisplaced complete fracture through the base of the proximal 5th metacarpal shaft is present. Overlying soft tissue swelling is present. An additional triquetrum chip fracture fragment on the dorsal aspect of the wrist is present. Where overlying soft tissue swelling is also noted. There is a 10 x 5 mm relative radiolucency central to the medullary cavity of the distal radial diaphysis and additional radiolucency and/or greater rarefication in the distal radial metaphysis as well. Here no fractures are noted. Clinical significance of these findings is unknown. No comparisons are available. Correlation with any known past medical history hematological processes is recommended. Benign and malignant etiologies are considerations. JOINTS: No marked arthrosis. SOFT TISSUES: Swelling as above OTHER FINDINGS: None. IMPRESSION: Nondisplaced fracture 5th proximal metacarpal. Triquetrum fracture. Bordering both fracture sites soft tissue swelling is present. Radiolucent like lesions suggested distal radius as detailed above. Clinical significance, if any, is unclear at this time please note the above description. Follow-up here advised. Comments: Study marked for PA review .
[2018-03-27 14:28] VITALS: BP 136/82; PULSE 72; RESP 18; TEMP 97.9; O2SAT 100
--- NOTE | 2018-03-27 15:30 | C.PDOC ---
History Of Present Illness 67 y/o male presents to the ER complaining of right wrist pain s/p trip and fall last night. Patient states that he has decreased ROM in his wrist. Denies having head injury,LOC, weakness and numbness. Chief Complaint (Nursing): Finger,Hand,&Wrist History Per: Patient History/Exam Limitations: no limitations Onset/Duration Of Symptoms: Days Current Symptoms Are (Timing): Still Present Severity: Moderate Past Medical History Reviewed: Historical Data, Nursing Documentation, Vital Signs Vital Signs: Last Vital Signs Temp 97.9 F 03/27/18 14:27 Pulse 72 03/27/18 14:27 Resp 18 03/27/18 14:27 BP 136/82 03/27/18 14:27 Pulse Ox 100 03/27/18 14:27 - Medical History PMH: Denies: Diabetes, Hepatitis, HIV, HTN, Seizures, Sexually Transmitted Disease Surgical History: No Surg Hx - [facility] Procedures ALCOHOL DETOXIFICATION (01/26/14) Family History: States: No Known Family Hx - Social History Hx Tobacco Use: Yes Hx Alcohol Use: Yes Hx Substance Use: No - Immunization History Hx Tetanus Toxoid Vaccination: No Hx Influenza Vaccination: No Hx Pneumococcal Vaccination: No Review Of Systems Except As Marked, All Systems Reviewed And Found Negative. Musculoskeletal: Positive for: Other (right wrist pain) Neurological: Negative for: Weakness, Numbness Physical Exam - Physical Exam Appears: Non-toxic, No Acute Distress Skin: Normal Color, Warm, Dry Head: Atraumatic, Normacephalic Eye(s): bilateral: Normal Inspection Nose: Normal Oral Mucosa: Moist Neck: Supple Chest: Symmetrical Extremity: No Normal ROM (decreased ROM in right wrist), No Tenderness, Capillary Refill (< 2 seconds), Swelling (swelling to right wrist) Pulses: Right Radial: Normal Neurological/Psych: Oriented x3, Normal Speech ED Course And Treatment O2 Sat by Pulse Oximetry: 100 (RA) Pulse Ox Interpretation: Normal - Other Rad X-Ray-Right Wrist' X-Ray: Viewed By Me, Read By Radiologist Interpretation: Date of service: 03/27/2018. PROCEDURE: Right Wrist Radiographs. . HISTORY: s/p fall - r/o fx. COMPARISON: None. FINDINGS: BONES: A nondisplaced complete fracture through the base of the proximal 5th metacarpal shaft is present. Overlying soft tissue swelling is present. An additional triquetrum chip fracture fragment on the dorsal aspect of the wrist is present. Where overlying soft tissue swelling is also noted. There is a 10 x 5 mm relative radiolucency central to the medullary cavity of the distal radial diaphysis and additional radiolucency and/or greater rarefication in the distal radial metaphysis as well. Here no fractures are noted. Clinical significance of these findings is unknown. No comparisons are available. Correlation with any known past medical history hematological processes is recommended. Benign and malignant etiologies are considerations. JOINTS: No marked arthrosis. SOFT TISSUES: Swelling as above. OTHER FINDINGS: None. IMPRESSION: Nondisplaced fracture 5th proximal metacarpal. Triquetrum fracture. Bordering both fracture sites soft tissue swelling is present. Radiolucent like lesions suggested distal radius as detailed above. Clinical significance, if any, is unclear at this time please note the above description. Follow-up here advised. Comments: Study marked for PA review . Medical Decision Making Medical Decision Making: Plan: --X-Ray-Right Wrist --Motrin PO Updates: Volar Splint was placed by [facility]. Patient has good pulses after splint placement. Patient has been discharged and instructed to follow up with orthopedist. Disposition - Disposition Referrals: [facility] [Outside] [facility] [Outside] Brody Gillette MD [Staff Provider] - Disposition: HOME/ ROUTINE Disposition Time: 12:05 Condition: GOOD Additional Instructions: BIANCA GARVIN, thank you for letting us take care of you today. The emergency medical care you received today was directed at your acute symptoms. If you were prescribed any medication, please fill it and take as directed. It may take several days for your symptoms to resolve. Return to the Emergency Department if your symptoms worsen, do not improve, or if you have any other problems. Please contact your doctor or call one of the physicians/clinics you have been referred to that are listed on the Patient Visit Information form that is included in your discharge packet. Bring any paperwork you were given at discharge with you along with any medications you are taking to your follow up visit. Our treatment cannot replace ongoing medical care by a primary care provider outside of the emergency department. Thank you for allowing the [facility] team to be part of your care today. DO NOT TAKE THE SPLINT OFF UNTIL YOU SEE THE ORTHOPEDIC DOCTOR. KEEP IT CLEAN AND DRY AT ALL TIMES. Follow up with Dr. Gillette, the orthopedic surgeon, in 3-4 days for re- evaluation and further management. Prescriptions: Ibuprofen [Motrin] 600 mg PO Q6 PRN #20 tab PRN Reason: Pain, Moderate (4-7) Instructions: Cast Care, Wrist Fracture (DC), Finger Fracture (DC) Forms: [facility] ([place]) - Clinical Impression Clinical Impression: Finger fracture, Triquetral chip fracture - Scribe Statement The provider has reviewed the documentation as recorded by the Venita De Leon Provider Attestation: All medical record entries made by the Polaibmillie were at my direction and personally dictated by me. I have reviewed the chart and agree that the record accurately reflects my personal performance of the history, physical exam, medical decision making, and the department course for this patient. I have also personally directed, reviewed, and agree with the discharge instructions and disposition.
== END 2018-03-27 14:28 | disposition home or self-care (01) ==
LOC: C.ER 10:38
DX: S62.111A Displaced fracture of triquetrum [cuneiform] bone, right wrist, initial encounter for closed fracture (principal); S62.646A Nondisplaced fracture of proximal phalanx of right little finger, initial encounter for closed fracture; W01.0XXA Fall on same level from slipping, tripping and stumbling without subsequent striking against object, initial encounter

== ENCOUNTER 2018-05-14 08:22 | Outpatient (CLI) | payer MEDICARE | END 2018-05-14 08:23 | disposition home or self-care (01) | LOC: C.MRIC 08:22 → C.RADIC 08:23 ==